=== PATIENT | female | born 1945 | race Caucasian/White ===

== ENCOUNTER 2017-01-15 18:03 | Emergency (ER) | payer OTHER, MEDICARE ==
[~2017-01-15] VITALS: Ht 165.1 cm; Wt 70.3 kg
--- NOTE | 2017-01-15 18:58 | ED GI/GU/ABDOMINAL COMPLAINT ---
History of Present Illness General Chief Complaint: Abdominal Pain/Flank Pain Stated Complaint: SEVERE LOWER ABD.PAIN X 6HRS Source: patient Exam Limitations: no limitations Vital Signs & Intake/Output Vital Signs & Intake/Output Vital Signs Date Time Temp Pulse Resp B/P Pulse O2 O2 Flow FiO2 Ox Delivery Rate 01/15 2030 96.6 44 18 127/60 98 Room Air 01/15 1821 97.0 90 20 155/63 99 / 1819 97.7 90 20 98 Room Air Reconcile Medications Ibuprofen (Advil Migraine) 200 MG CAPSULE 2-3 TAB PO TID PRN PAIN (Reported) Olmesartan/Hydrochlorothiazide (Benicar Hct 20-12.5 MG Tablet) 20 MG-12.5 MG TABLET 1 TAB PO DAILY BP (Reported) Ondansetron HCl (Zofran) 4 MG TABLET 1 TAB PO Q6-8P PRN NAUSEA Triage Note: INTERMITTIN WAVES OF ABD PAIN ALL DAY CURRENTLY 03/23 REPORTS HX OF DIVERTICULITIS Triage Nurses Notes Reviewed? yes ? N Is pt currently ? No Onset: Abrupt Duration: waxing and waning Timing: recent history Severity Numbers: 10 Location: periumbilical Radiation: no radiation Activities at Onset: none HPI: Patient is a 71-year-old female with medical history of hypertension and diverticulitis, osteoarthritis who presents emergency room stating that patient ate breakfast today over at 1300 patient had acute onset of sharp stabbing severe periumbilical pain that lasted for approximately 45 minutes and since the symptoms have been waxing and waning. Patient currently complains of 310 localized periumbilical pain. Last bowel movement was today no blood no melena noted. Denies any fever chills back pain dysuria hematuria vaginal bleeding vaginal discharge. Patient did not take any medications for symptoms however patient has stating that she has significant osteoarthritis and has been using ibuprofen persistently for the past 6 months. Patient does state that she had mild nausea due to significant earlier pain however nothing now Patient does state that earlier she had dry heaves with NO vomiting (JEFF BARBA) Past History Travel History Traveled to [place] past 21 day No Medical History Any Pertinent Medical History? see below for history Cardiovascular: hypertension Surgical History Surgical History: appendectomy Family History Hx Contributory? No (JEFF BARBA) Review of Systems Review of Systems Constitutional: Reports: no symptoms. EENTM: Reports: no symptoms. Respiratory: Reports: no symptoms. Cardiovascular: Reports: no symptoms. GI: Reports: see HPI, abdominal pain, nausea, vomiting. Genitourinary: Reports: no symptoms. Musculoskeletal: Reports: no symptoms. Skin: Reports: no symptoms. Neurological/Psychological: Reports: no symptoms. Hematologic/Endocrine: Reports: no symptoms. Immunologic/Allergic: Reports: no symptoms. All Other Systems: Reviewed and Negative (JEFF BARBA) Physical Exam Physical Exam General Appearance: no apparent distress, alert, comfortable Gastrointestinal: normal bowel sounds, soft, NO REBOUND TENDERNESS NO RIGHT LOWER QUADRANT PAIN NO RIGHT UPPER QUADRANT PAIN NO EPIGASTRIC PAIN MODERATE PERIUMBILICAL POINT TENDERNESS NOTED Comments: Well-developed well-nourished person in no acute distress HEENT: Normal EENT exam, Neck: Supple, no lymphadenopathy, normal range of motion without pain or tenderness Back: Nontender, no CVA tenderness. Cardiovascular: Regular rate and rhythms no murmurs rubs or gallops, normal JVP Respiratory: Chest nontender. No respiratory distress.breath sounds clear to auscultation bilaterally Extremity: No edema, no calf tenderness to palpation, normal and equal pulses. Neuro: Alert oriented x3, motor sensory normal, Skin: No appreciable rash on exposed skin, skin is warm and dry. Psych: Mood and affect is normal, memory and judgment is normal. Core Measures ACS in differential dx? No Severe Sepsis Present: No Septic Shock Present: No (JEFF BARBA) Progress Differential Diagnosis: AAA, AMI, biliary colic, bowel obstruction, colon cancer , cholecystitis, diverticulitis, endometritis, esophageal varices, gastritis, hepatitis, hernia, hemorrhoids, ischemic bowel, inflamm bowel dis, kidney stone, Darshana-Charleen tear, ovarian cyst, ovarian torsion, pancreatitis, PID/cervicitis, peptic ulcer, PUD/GERD, perforated viscous, SBO, UTI/pyelo Plan of Care: Orders Procedure Date/time Status LACTIC ACID 01/15 215 Active Add-on Test (ER Only) 01/15 2031 Active EKG 01/15 2030 Active THYROID STIMULATING HORMONE 01/15 1937 Complete TROPONIN LEVEL 01/15 1937 Complete THYROXINE 01/15 193 Complete URINALYSIS 01/15 185 Complete LIPASE 01/15 185 Complete LACTIC ACID 01/15 185 Complete COMPREHENSIVE METABOLIC PANEL 01/15 185 Complete CBC WITHOUT DIFFERENTIAL 01/16 1856 Complete AMYLASE 01/16 1856 Complete Laboratory Tests 01/15/173: Urine Color YEL, Urine Clarity CLEAR, Urine pH 6.0, Ur Specific [place] 1.025, Urine Protein NEG, Urine Ketones NEG, Urine Nitrite NEG, Urine Bilirubin NEG, Urine Urobilinogen 0.2, Ur Leukocyte Esterase NEG, Ur Microscopic EXAM NOT REQUIRED, Urine Hemoglobin NEG, Urine Glucose NEG 01/15/17 1937: Anion Gap 9, Estimated GFR > 60, BUN/Creatinine Ratio 35.0 H, Glucose 89, Lactic Acid 0.7, Calcium 9.6, Total Bilirubin 0.6, AST 18, ALT 35, Alkaline Phosphatase 66, Troponin I < 0.01, Total Protein 6.3, Albumin 3.6, Globulin 2.7, Albumin/Globulin Ratio 1.3, Amylase 54, Lipase 131, TSH 0.825, Thyroxine (T4) 10.8, CBC w Diff NO MAN DIFF REQ, RBC 4.25, MCV 88.1, MCH 29.7, RDW 13.3, MPV 8.3, Gran % 62.2, Lymphocytes % 26.3, Monocytes % 8.2, Eosinophils % 2.3, Basophils % 1.0, Absolute Granulocytes 3.8, Absolute Lymphocytes 1.6, Absolute Monocytes 0.5, Absolute Eosinophils 0.1, Absolute Basophils 0.1, PUBS MCHC 33.7 Patient currently is in no apparent distress is noted to me that nursing staff prior to morphine menstruation she declined pain medication as patient has no symptoms of pain. It was noted the patient had signs of bradycardia which EKG confirms however patient is on BYSTOLIC. Patient was strongly advised to follow-up with cook ice cream And she will comply Patient had unremarkable blood work and CT scan and urinalysis for concerns of acute process patient was strongly advised to follow-up with racing secretary and handicapper. Upon discharge patient looks well no apparent distress and will comply with discharge instructions and had no questions (ALDAIR DRISCOLL,JEFF) Diagnostic Imaging: Viewed by Me: CT Scan. Radiology Impression: no acute abnormality Initial ED EK BPM SINUS BRADYCARDIA Comments: PATIENT: TRISTEN MOSS PRESENT AGE: 71 PATIENT ACCOUNT NO: [id number] : 43 LOCATION: [facility] ORDERING PHYSICIAN: JEFF DRISCOLL SERVICE DATE: 01/15/17 EXAM TYPE: CAT - CT ABD & PELVIS W IV CONTRAST EXAMINATION: CT ABDOMEN AND PELVIS WITH CONTRAST CLINICAL INFORMATION: Suprapubic abdominal pain. COMPARISON: None TECHNIQUE: Multidetector volumetric imaging was performed of the abdomen and pelvis before and after the IV administration of 94 mL of Optiray 320 intravenous contrast. Sagittal and coronal reformatted images were obtained on the technologist's workstation. DLP: 280 mGy-cm FINDINGS: LUNG BASES: The visualized lung bases are unremarkable. LIVER, GALLBLADDER, AND BILIARY TREE: Liver has normal size, contour and attenuation. No suspicious hepatic lesion or intrahepatic bile duct dilatation. Gallbladder is unremarkable. PANCREAS: Unremarkable. SPLEEN: Unremarkable. ADRENAL GLANDS: Unremarkable. KIDNEYS AND URETERS: The kidneys are normal in size, shape, and attenuation. No hydronephrosis, hydroureter, or calculi seen. No perinephric stranding. BLADDER: Unremarkable. GASTROINTESTINAL TRACT: Loops of bowel are normal in size. There is no evidence of inflammation or obstruction along the gastrointestinal tract. Mild diverticulosis of the sigmoid colon without diverticulitis. No ascites or pneumoperitoneum. ABDOMINAL WALL: Unremarkable. LYMPH NODES: No pathologic sized lymph nodes within the abdomen or pelvis. VASCULAR: Abdominal aorta is normal in caliber. PELVIC VISCERA: The anteflexed uterus is normal in size. There are no adnexal masses. The left parauterine veins and left ovarian vein are mildly dilated, suggestive of venous valve incompetence. No evidence of ovarian vein thrombosis or pelvic free fluid. OSSEOUS STRUCTURES: Multilevel degenerative disc space narrowing, vacuum disc phenomenon and osteophyte formation of the lumbar spine. No aggressive osseous lesions. IMPRESSION: 1. Mild diverticulosis of the sigmoid colon without diverticulitis. 2. No evidence of urinary tract pathology. (ALDAIR DRISCOLL,JEFF) Departure Departure Disposition: HOME OR SELF CARE Condition: Stable Clinical Impression Primary Impression: Abdominal pain Secondary Impressions: Bradycardia Referrals: ADALID SIMS,JEFF GOMEZ (PCP/Family) Additional Instructions: As discussed on Tuesday follow-up with your cook ice cream or if you want to establish a new cook ice cream follow-up with an established Elmer Mascorro MD for further evaluation treatment. If symptoms continue on Tuesday follow-up with your established racing secretary and handicapper. Begin the prescription of Zofran for nausea. Per prescription is waiting at [facility] pharmacy. If symptoms worsen return to emergency room. Please provide to your doctors for follow-up copies of EKG and blood work and CT scan provided to the emergency room Departure Forms: Customer Survey General Discharge Information Prescriptions: Current Visit Scripts Ondansetron HCl (Zofran) 1 TAB PO Q6-8P PRN NAUSEA #15 TAB (JEFF BARBA) PA/DIRECTOR IMMUNOLOGY Co-Sign Statement Statement: ED Attending supervision documentation- [X] I saw and evaluated the patient. I have also reviewed all the pertinent lab results and diagnostic results. I agree with the findings and the plan of care as documented in the PA's/DIRECTOR IMMUNOLOGY's documentation. X[X] I have reviewed the ED Record and agree with the PA's/DIRECTOR IMMUNOLOGY's documentation. [] Additions or exceptions (if any) to the PAs/DIRECTOR IMMUNOLOGY's note and plan are summarized below: [] (JAISON SIMS,SHERMAN Mendoza)
[2017-01-15] MEDS ORDERED: BENICAR HCT 201 EACH PO (19:23)
[2017-01-15] MEDS ORDERED: ADVIL MIGRAINE200 M1 PO (19:24)
[2017-01-15 20:12] LABS: ABSOLUTE BASOPHIL COUNT 0.1 /CUMM (0.0-0.2); ABSOLUTE EOSINOPHIL COUNT 0.1 /CUMM (0.0-0.7); ABSOLUTE GRANULOCYTE CT 3.8 /CUMM (1.4-6.5); ABSOLUTE LYMPH COUNT 1.6 /CUMM (1.2-3.4); ABSOLUTE MONOCYTE COUNT 0.5 /CUMM (0.10-0.60); EOSINOPHIL % 2.3 % (0-5); GRANULOCYTE % 62.2 % (42.2-75.2); HEMATOCRIT 37.5 % (37-47); MEAN CORPUSCULAR HGB 29.7 PG (27.0-31.0); MEAN CORPUSCULAR HGB CONC 33.7 G/DL (33.0-37.0); MEAN CORPUSCULAR VOLUME 88.1 FL (81.0-99.0); MEAN PLATELET VOLUME 8.3 FL (7.4-10.4); PLATELET COUNT 224 /CUMM (130-400); RBC DISTRIBUTION WIDTH 13.3 % (11.5-14.5); RED BLOOD CELL CT 4.25 /CUMM (4.20-5.40); WHITE BLOOD CELL COUNT 6.2 /CUMM (4.8-10.8)
--- NOTE | 2017-01-15 21:50 | CT SCAN REPORT ---
EXAMINATION: CT ABDOMEN AND PELVIS WITH CONTRAST CLINICAL INFORMATION: Suprapubic abdominal pain. COMPARISON: None TECHNIQUE: Multidetector volumetric imaging was performed of the abdomen and pelvis before and after the IV administration of 94 mL of Optiray 320 intravenous contrast. Sagittal and coronal reformatted images were obtained on the technologist's workstation. DLP: 280 mGy-cm FINDINGS: LUNG BASES: The visualized lung bases are unremarkable. LIVER, GALLBLADDER, AND BILIARY TREE: Liver has normal size, contour and attenuation. No suspicious hepatic lesion or intrahepatic bile duct dilatation. Gallbladder is unremarkable. PANCREAS: Unremarkable. SPLEEN: Unremarkable. ADRENAL GLANDS: Unremarkable. KIDNEYS AND URETERS: The kidneys are normal in size, shape, and attenuation. No hydronephrosis, hydroureter, or calculi seen. No perinephric stranding. BLADDER: Unremarkable. GASTROINTESTINAL TRACT: Loops of bowel are normal in size. There is no evidence of inflammation or obstruction along the gastrointestinal tract. Mild diverticulosis of the sigmoid colon without diverticulitis. No ascites or pneumoperitoneum. ABDOMINAL WALL: Unremarkable. LYMPH NODES: No pathologic sized lymph nodes within the abdomen or pelvis. VASCULAR: Abdominal aorta is normal in caliber. PELVIC VISCERA: The anteflexed uterus is normal in size. There are no adnexal masses. The left parauterine veins and left ovarian vein are mildly dilated, suggestive of venous valve incompetence. No evidence of ovarian vein thrombosis or pelvic free fluid. OSSEOUS STRUCTURES: Multilevel degenerative disc space narrowing, vacuum disc phenomenon and osteophyte formation of the lumbar spine. No aggressive osseous lesions. IMPRESSION: 1. Mild diverticulosis of the sigmoid colon without diverticulitis. 2. No evidence of urinary tract pathology.
[2017-01-15] MEDS ORDERED: ZOFRAN4 M2 PO (22:00)
[2017-01-15 22:24] VITALS: BP 130/60
== END 2017-01-15 22:29 ==
LOC: ERH 18:03
PROVIDERS: Physician Assistant
DX: R00.1 Bradycardia, unspecified (principal); R10.33 Periumbilical pain
CPT/HCPCS: 74177; 81003; 93005; 93010